=== PATIENT | female | born 1960 ===

== ENCOUNTER → 2022-05-28 | Outpatient (CLI) | payer OTHER, MEDICAID ==
[2022-05-28 16:19] LABS: Urine Bacteria NONE SEEN /hpf (None Seen); Urine Blood Negative /uL (Negative); Urine Specific Gravity 1.006 (1.001-1.035); Urine WBC 47 /hpf (0 - 5)
== END | disposition home or self-care (01) ==
LOC: LAB 15:57
PROVIDERS: ATTEND Urology
DX: N39.0 Urinary tract infection, site not specified (principal)
CPT/HCPCS: 81001; 87086